=== PATIENT | female | born 1945 | race Asian ===

== ENCOUNTER 2019-07-01 11:47 | Observation (INO) | payer MEDICARE, OTHER ==
[~2019-07-01] VITALS: Ht 160 cm; Wt 56.7 kg
--- OUTSIDE RECORDS SUMMARY | 2019-07-01 11:50 | XMS REPORT ---
Author Author [facility] Organization [facility] Address [address] [place] [place] [address] Phone Unavailable Care Team Providers Care Microsoft Developer Name Role Phone TYRON KAMI BUI Attphys Unavailable LUIGI GUERIN Admphys Unavailable Problems This patient has no known problems. Allergies, Adverse Reactions, Alerts This patient has no known allergies or adverse reactions. Medications This patient has no known medications. Procedures This patient has no known procedures. Results Test Description Test Time Test Comments Results Result Comments Source POCT-GLUCOSE METER 2018-04-04 07:55:00 Test Item POC-GLUCOSE METER (BEAKER) (test code = 1538) 194 mg/dL 70-110 H TESTED AT [facility] [address] [facility] [address] BASIC METABOLIC [id number] 07:02:00* Test Item Value Reference Range Interpretation Comments SODIUM (BEAKER) (test code = 381) 136 meq/L 136-145 POTASSIUM (BEAKER) (test code = 379) 3.8 meq/L 3.5-5.1 CHLORIDE (BEAKER) (test code = 382) 108 meq/L 98-107 H CO2 (BEAKER) (test code = 355) 22 meq/L 22-29 BLOOD UREA NITROGEN (BEAKER) (test code = 354) 7 mg/dL 7-21 CREATININE (BEAKER) (test code = 358) 0.66 mg/dL 0.57-1.25 GLUCOSE RANDOM (BEAKER) (test code = 652) 168 mg/dL 70-105 H CALCIUM (BEAKER) (test code = 697) 8.3 mg/dL 8.4-10.2 L EGFR (BEAKER) (test code = 1092) 88 mL/min/1.73 sq m ESTIMATED GFR IS NOT ACCURATE CREATININE CLEARANCE IN PREDICTING GLOMERULAR FILTRATION RATE. ESTIMATED GFR IS NOT APPLICABLE FOR DIALYSIS PATIENTS. HEMOGLOBIN AND [id number] 05:41:00* Test Item Value Reference Range Interpretation Comments HEMOGLOBIN (BEAKER) (test code = 410) 10.2 GM/DL 11.2-15.7 L HEMATOCRIT (BEAKER) (test code = 411) 31.8 % 34.1-44.9 L POCT-GLUCOSE [id number] 21:06:00* Test Item Value Reference Range Interpretation Comments POC-GLUCOSE METER (BEAKER) (test code = 1538) 259 mg/dL 70-110 H TESTED AT [address] [address] HEMOGLOBIN AND [id number] 17:47:00* Test Item Value Reference Range Interpretation Comments HEMOGLOBIN (BEAKER) (test code = 410) 10.3 GM/DL 11.2-15.7 L HEMATOCRIT (BEAKER) (test code = 411) 31.6 % 34.1-44.9 L POCT-GLUCOSE [id number] 17:34:00* Test Item Value Reference Range Interpretation Comments POC-GLUCOSE METER (BEAKER) (test code = 1538) 143 mg/dL 70-110 H TESTED AT [address] [address] [id number] 11:32:00* Test Item Value Reference Range Interpretation Comments MAGNESIUM (BEAKER) (test code = 627) 1.6 mg/dL 1.6-2.6 POCT-GLUCOSE [id number] 11:14:00* Test Item Value Reference Range Interpretation Comments POC-GLUCOSE METER (BEAKER) (test code = 1538) 210 mg/dL 70-110 H TESTED AT [address] [address] POCT-GLUCOSE [id number] 07:33:00* Test Item Value Reference Range Interpretation Comments POC-GLUCOSE METER (BEAKER) (test code = 1538) 195 mg/dL 70-110 H TESTED AT [address] [address] BASIC METABOLIC [id number] 06:13:00* Test Item Value Reference Range Interpretation Comments SODIUM (BEAKER) (test code = 381) 135 meq/L 136-145 L POTASSIUM (BEAKER) (test code = 379) 3.4 meq/L 3.5-5.1 L CHLORIDE (BEAKER) (test code = 382) 105 meq/L 98-107 CO2 (BEAKER) (test code = 355) 23 meq/L 22-29 BLOOD UREA NITROGEN (BEAKER) (test code = 354) 10 mg/dL 7-21 CREATININE (BEAKER) (test code = 358) 0.70 mg/dL 0.57-1.25 GLUCOSE RANDOM (BEAKER) (test code = 652) 168 mg/dL 70-105 H CALCIUM (BEAKER) (test code = 697) 8.2 mg/dL 8.4-10.2 L EGFR (BEAKER) (test code = 1092) 82 mL/min/1.73 sq m ESTIMATED GFR IS NOT ACCURATE CREATININE CLEARANCE IN PREDICTING GLOMERULAR FILTRATION RATE. ESTIMATED GFR IS NOT APPLICABLE FOR DIALYSIS PATIENTS. HEPATIC FUNCTION [id number] 06:09:00* Test Item Value Reference Range Interpretation Comments TOTAL PROTEIN (BEAKER) (test code = 770) 5.7 gm/dL 6.0-8.3 L ALBUMIN (BEAKER) (test code = 1145) 3.2 g/dL 3.5-5.0 L BILIRUBIN TOTAL (BEAKER) (test code = 377) 0.5 mg/dL 0.2-1.2 BILIRUBIN DIRECT (BEAKER) (test code = 706) 0.2 mg/dL 0.1-0.5 ALKALINE PHOSPHATASE (BEAKER) (test code = 346) 30 U/L 40-150 L AST (SGOT) (BEAKER) (test code = 353) 15 U/L 5-34 ALT (SGPT) (BEAKER) (test code = 347) 14 U/L 6-55 HEMOGLOBIN AND [id number] 05:42:00* Test Item Value Reference Range Interpretation Comments HEMOGLOBIN (BEAKER) (test code = 410) 10.7 GM/DL 11.2-15.7 L HEMATOCRIT (BEAKER) (test code = 411) 33.4 % 34.1-44.9 L POCT-GLUCOSE [id number] 21:25:00* Test Item Value Reference Range Interpretation Comments POC-GLUCOSE METER (BEAKER) (test code = 1538) 192 mg/dL 70-110 H TESTED AT [facility] [address] [facility] [address] HEMOGLOBIN AND [id number] 18:43:00* Test Item Value Reference Range Interpretation Comments HEMOGLOBIN (BEAKER) (test code = 410) 12.0 GM/DL 11.2-15.7 HEMATOCRIT (BEAKER) (test code = 411) 36.5 % 34.1-44.9 POCT-GLUCOSE [id number] 12:53:00* Test Item Value Reference Range Interpretation Comments POC-GLUCOSE METER (BEAKER) (test code = 1538) 233 mg/dL 70-110 H TESTED AT [facility] [address] [facility] [address] CBC W/PLT COUNT & AUTO [id number] 06:20:00* Test Item Value Reference Range Interpretation Comments WHITE BLOOD CELL COUNT (BEAKER) (test code = 775) 7.0 K/ L 4.0- 10.0 RED BLOOD CELL COUNT (BEAKER) (test code = 761) 4.00 M/ L 4.00-5 .00 HEMOGLOBIN (BEAKER) (test code = 410) 12.7 GM/DL 12.0-15.0 HEMATOCRIT (BEAKER) (test code = 411) 37.9 % 36.0-45.0 MEAN CORPUSCULAR VOLUME (BEAKER) (test code = 753) 94.7 fL 82. 0-99.0 MEAN CORPUSCULAR HEMOGLOBIN (BEAKER) (test code = 751) 31.8 pg 27.0-33.0 MEAN CORPUSCULAR HEMOGLOBIN CONC (BEAKER) (test code = 752) 33.6 GM/DL 32.0-36.0 RED CELL DISTRIBUTION WIDTH (BEAKER) (test code = 412) 13.0 % 10.3-14.2 PLATELET COUNT (BEAKER) (test code = 756) 169 K/CU MM 150-430 MEAN PLATELET VOLUME (BEAKER) (test code = 754) 7.0 fL 6.5-10 .5 NEUTROPHILS RELATIVE PERCENT (BEAKER) (test code = 429) 76 % LYMPHOCYTES RELATIVE PERCENT (BEAKER) (test code = 430) 16 % MONOCYTES RELATIVE PERCENT (BEAKER) (test code = 431) 7 % EOSINOPHILS RELATIVE PERCENT (BEAKER) (test code = 432) 1 % BASOPHILS RELATIVE PERCENT (BEAKER) (test code = 437) 1 % NEUTROPHILS ABSOLUTE COUNT (BEAKER) (test code = 670) 5.31 K/ L 1.80-8.00 LYMPHOCYTES ABSOLUTE COUNT (BEAKER) (test code = 414) 1.10 K/ L 1.48-4.50 L MONOCYTES ABSOLUTE COUNT (BEAKER) (test code = 415) 0.48 K/ L 0. 00-1.30 EOSINOPHILS ABSOLUTE COUNT (BEAKER) (test code = 416) 0.07 K/ L 0.00-0.50 BASOPHILS ABSOLUTE COUNT (BEAKER) (test code = 417) 0.03 K/ L 0. 00-0.20 CBC W/PLT COUNT & AUTO [id number] 02:54:00* Test Item Value Reference Range Interpretation Comments WHITE BLOOD CELL COUNT (BEAKER) (test code = 775) 7.5 K/ L 4.0- 10.0 RED BLOOD CELL COUNT (BEAKER) (test code = 761) 4.00 M/ L 4.00-5 .00 HEMOGLOBIN (BEAKER) (test code = 410) 12.5 GM/DL 12.0-15.0 HEMATOCRIT (BEAKER) (test code = 411) 37.8 % 36.0-45.0 MEAN CORPUSCULAR VOLUME (BEAKER) (test code = 753) 94.4 fL 82. 0-99.0 MEAN CORPUSCULAR HEMOGLOBIN (BEAKER) (test code = 751) 31.4 pg 27.0-33.0 MEAN CORPUSCULAR HEMOGLOBIN CONC (BEAKER) (test code = 752) 33.2 GM/DL 32.0-36.0 RED CELL DISTRIBUTION WIDTH (BEAKER) (test code = 412) 12.9 % 10.3-14.2 PLATELET COUNT (BEAKER) (test code = 756) 167 K/CU MM 150-430 MEAN PLATELET VOLUME (BEAKER) (test code = 754) 7.4 fL 6.5-10 .5 NEUTROPHILS RELATIVE PERCENT (BEAKER) (test code = 429) 78 % LYMPHOCYTES RELATIVE PERCENT (BEAKER) (test code = 430) 14 % MONOCYTES RELATIVE PERCENT (BEAKER) (test code = 431) 8 % EOSINOPHILS RELATIVE PERCENT (BEAKER) (test code = 432) 1 % BASOPHILS RELATIVE PERCENT (BEAKER) (test code = 437) 0 % NEUTROPHILS ABSOLUTE COUNT (BEAKER) (test code = 670) 5.83 K/ L 1.80-8.00 LYMPHOCYTES ABSOLUTE COUNT (BEAKER) (test code = 414) 1.01 K/ L 1.48-4.50 L MONOCYTES ABSOLUTE COUNT (BEAKER) (test code = 415) 0.56 K/ L 0. 00-1.30 EOSINOPHILS ABSOLUTE COUNT (BEAKER) (test code = 416) 0.05 K/ L 0.00-0.50 BASOPHILS ABSOLUTE COUNT (BEAKER) (test code = 417) 0.03 K/ L 0. 00-0.20 PROTHROMBIN TIME/[id number] 01:24:00* Test Item Value Reference Range Interpretation Comments PROTIME (BEAKER) (test code = 759) 10.3 seconds 9.8-12.0 INR (BEAKER) (test code = 370) 1.0 <=5.9 RECOMMENDED COUMADIN/WARFARIN INR THERAPY RANGESSTANDARD DOSE: 2.0 - 3.0 Inclu candi: PROPHYLAXIS for venous thrombosis, systemic embolization; TREATMENT for kaylah ous thrombosis and/or pulmonary embolus.HIGH RISK: Target INR is 2.5-3.5 for pat ients with mechanical heart valves.CT, [id number] 23:35:00Reason for exam:->DIARRHEAWhat is the patient's sedation requirement?->No SedationFINAL REPORT CLINICAL HISTORY: Diarrhea, abdominal pain and hematochezia FINDINGS: Multiple axial images of the abdomen and pelvis were performed after the uncomplicated administration of IV contrast. Oral contrast w as not given. This exam was performed according to our departmental dose-optimi zation program, which includes automated exposure control, adjustment of the mA and/or kV according to patient size and/or use of the iterative reconstruction t echnique. Comparison:None. Lower chest: Clear lungs. No pleural effusion or pneu mothorax. Visualized cardiac contours normal. Liver: No significant findings. Ga llbladder and biliary tree: No significant findings. Spleen: No significant find ings. Adrenal Glands: No significant findings. Kidneys and ureters: No significa nt findings. Stomach and Duodenum: No significant findings. Pancreas: No signifi cant findings Bowel: Rectal wall thickening of the colon from the proximal trans verse portion to the rectum. There is mural edema in the colon from the splenic flexure to the rectum with adjacent fat stranding and prominent vasculature, as well as prominent mucosal enhancement. The colon is relatively decompressed but there is a small amount of fluid density stool within the lumen of the colon to the rectum. There is no bowel obstruction or pneumatosis intestinalis. The small bowel is unremarkable. Appendix: Normal. Bladder: Decompressed Major vascular structures: Scattered, minimal atherosclerotic calcifications Reproductive org ans: No significant findings. Other: No free air, fluid or adenopathy Skeleton: No acute bony abnormality. IMPRESSION: Colitis. Infectious and inflammatory caus es are considered. Signed: Moises Medrano MDReport Verified Date/Time: 9 23:35:11 Reading Location: [address] Reading Room [facility] signed by: MOISES MEDRANO M.D. on 04/01/2018 11:35 PM BASIC METABOLIC [id number] 21:29:00* Test Item Value Reference Range Interpretation Comments SODIUM (BEAKER) (test code = 381) 139 meq/L 135-148 POTASSIUM (BEAKER) (test code = 379) 4.7 meq/L 3.6-5.5 CHLORIDE (BEAKER) (test code = 382) 97 meq/L 98-106 L CO2 (BEAKER) (test code = 355) 27 meq/L 24-32 BLOOD UREA NITROGEN (BEAKER) (test code = 354) 27 mg/dL 10-26 H CREATININE (BEAKER) (test code = 358) 0.86 mg/dL 0.50-1.20 GLUCOSE RANDOM (BEAKER) (test code = 652) 240 mg/dL 70-110 H CALCIUM (BEAKER) (test code = 697) 10.5 mg/dL 8.5-10.5 EGFR (BEAKER) (test code = 1092) 65 mL/min/1.73 sq m ESTIMATED GFR IS NOT ACCURATE CREATININE CLEARANCE IN PREDICTING GLOMERULAR FILTRATION RATE. ESTIMATED GFR IS NOT APPLICABLE FOR DIALYSIS PATIENTS. URINALYSIS W/ REFLEX URINE [id number] 21:24:00* Test Item Value Reference Range Interpretation Comments COLOR (BEAKER) (test code = 470) Dark Yellow CLARITY (BEAKER) (test code = 469) Clear SPECIFIC GRAVITY UA (BEAKER) (test code = 468) 1.025 1.001-1 .035 PH UA (BEAKER) (test code = 467) 5.5 5.0-8.0 PROTEIN UA (BEAKER) (test code = 464) Trace Negative A GLUCOSE UA (BEAKER) (test code = 365) Negative Negative KETONES UA (BEAKER) (test code = 371) 40 mg/dL Negative A BILIRUBIN UA (BEAKER) (test code = 462) Negative Negative BLOOD UA (BEAKER) (test code = 461) Negative Negative NITRITE UA (BEAKER) (test code = 465) Negative Negative LEUKOCYTE ESTERASE UA (BEAKER) (test code = 466) Negative Negat santy UROBILINOGEN UA (BEAKER) (test code = 463) 0.2 mg/dL 0.2-1.0 BACTERIA (BEAKER) (test code = 517) Moderate MUCUS (BEAKER) (test code = 1574) Few RBC UA-MANUAL (BEAKER) (test code = 1659) <5 /HPF WBC UA-MANUAL (BEAKER) (test code = 1661) <5 /HPF SQUAMOUS EPITHELIAL MANUAL (BEAKER) (test code = 1663) <5 /HPF HYALINE CASTS MANUAL (BEAKER) (test code = 1665) 0-5 /LPF SOURCE(BEAKER) (test code = 0255) CBC W/PLT COUNT & AUTO [id number] 21:20:00* Test Item Value Reference Range Interpretation Comments WHITE BLOOD CELL COUNT (BEAKER) (test code = 775) 9.0 K/ L 4.0- 10.0 RED BLOOD CELL COUNT (BEAKER) (test code = 761) 4.68 M/ L 4.00-5 .00 HEMOGLOBIN (BEAKER) (test code = 410) 14.5 GM/DL 12.0-15.0 HEMATOCRIT (BEAKER) (test code = 411) 44.1 % 36.0-45.0 MEAN CORPUSCULAR VOLUME (BEAKER) (test code = 753) 94.3 fL 82. 0-99.0 MEAN CORPUSCULAR HEMOGLOBIN (BEAKER) (test code = 751) 31.1 pg 27.0-33.0 MEAN CORPUSCULAR HEMOGLOBIN CONC (BEAKER) (test code = 752) 33.0 GM/DL 32.0-36.0 RED CELL DISTRIBUTION WIDTH (BEAKER) (test code = 412) 12.7 % 10.3-14.2 PLATELET COUNT (BEAKER) (test code = 756) 190 K/CU MM 150-430 MEAN PLATELET VOLUME (BEAKER) (test code = 754) 7.3 fL 6.5-10 .5 NEUTROPHILS RELATIVE PERCENT (BEAKER) (test code = 429) 84 % LYMPHOCYTES RELATIVE PERCENT (BEAKER) (test code = 430) 10 % MONOCYTES RELATIVE PERCENT (BEAKER) (test code = 431) 4 % EOSINOPHILS RELATIVE PERCENT (BEAKER) (test code = 432) 1 % BASOPHILS RELATIVE PERCENT (BEAKER) (test code = 437) 0 % NEUTROPHILS ABSOLUTE COUNT (BEAKER) (test code = 670) 7.56 K/ L 1.80-8.00 LYMPHOCYTES ABSOLUTE COUNT (BEAKER) (test code = 414) 0.93 K/ L 1.48-4.50 L MONOCYTES ABSOLUTE COUNT (BEAKER) (test code = 415) 0.39 K/ L 0. 00-1.30 EOSINOPHILS ABSOLUTE COUNT (BEAKER) (test code = 416) 0.07 K/ L 0.00-0.50 BASOPHILS ABSOLUTE COUNT (BEAKER) (test code = 417) 0.04 K/ L 0. 00-0.20
--- OUTSIDE RECORDS SUMMARY | 2019-07-01 11:50 | XMS REPORT | Clinical Summary ---
Author Author [facility]OSUE [facility] Address Unknown Phone Unavailable Care Team Providers Care Print Shop Chief Clerk Name Role Phone Pcp, No PCP Unavailable Allergies Comments Active Allergy Reactions Severity Noted Date Never took but gave and hand blistered Chlorpromazine Hcl Rash Low 03/07/2015 Penicillins Rash Low 03/07/2015 Medications End Date Status Medication Sig Dispensed Refills Start Date Active calcipotriene (DOVONOX) Apply BID to 0 0.005 % ointment rash on 9 Sat/Sun prn Active desoximetasone (TOPICORT) Apply 0 02/18 0.25 % ointment sparingly BID 9 to rash Mon-Fri PRN flares only. Not for use on face, armpits or groin. Active glimepiride (AMARYL) 2 MG TAKE ONE 0 tablet TABLET BY 8 MOUTH EVERY MORNING BEFORE BREAKFAST Active latanoprost (XALATAN) INSTILL ONE 0 09/30/19 1 0.005 % ophthalmic DROP IN BOTH 8 solution EYES AT BEDTIME Active lisinopril-hydroCHLOROthi TAKE ONE 0 03/20 azide TABLET BY 9 (PRINZIDE,ZESTORETIC) MOUTH DAILY 20-12.5 mg per tablet Active metFORMIN (GLUCOPHAGE) TAKE ONE 0 1000 MG tablet TABLET BY 8 MOUTH TWICE A DAY WITH MEALS Active coenzyme Q10 100 mg Take 100 mg 0 capsule by mouth daily . Active pravastatin (PRAVACHOL) Take 40 mg by 0 40 MG tablet mouth nightly 8 . Active omega-3 acid ethyl esters Take 1,000 mg 0 (LOVAZA) 1 gram capsule by mouth 3 (three) times daily . Active multivitamin per tablet Take 1 tablet 0 by mouth daily. Active glucosamine/chondr marks A Take 1 tablet 0 sod (OSTEO BI-FLEX ORAL) by mouth daily. Active aspirin 81 MG chewable Take 81 mg by 0 tablet mouth daily. Active Problems Problem Noted Date Hypokalemia due to loss of potassium 04/03/2018 Acute blood loss anemia 04/03/2018 Colitis 04/02/2018 Acute hemorrhagic colitis 04/02/2018 Hypertension 04/02/2018 Diabetes mellitus 04/02/2018 Hyperlipidemia 04/02/2018 Family History Medical History Relation Name Comments Hypertension Paternal Grandfather Diabetes Paternal Grandmother Relation Name Status Comments Paternal Grandfather Paternal Grandmother Social History Date Tobacco Use Types Packs/Day Years Used Never Smoker Smokeless Tobacco: Never Used Alcohol Use Drinks/Week oz/Week Comments No Alcohol Habits Answer Date Recorded How often do you have a drink containing alcohol? Never 04/01/2018 How many drinks containing alcohol do you have on No t asked a typical day when you are drinking? How often do you have six or more drinks on one Not asked occasion? Sex Assigned at Date Recorded Not on file Industry Job Start Date Occupation Not on file Not on file Not on file Travel End Travel History Travel Start No recent travel history available. Last Filed Vital Signs Not on file Plan of Treatment Not on file Results Not on fileafter 06/30/2018 Insurance Payer Benefit Subscriber ID Type Phone Address Plan / Group [facility] xxxxxxxxxxx MEDICARE ADV Advance Directives For more information, please contact: [facility] [address] [place] [address] Date Inactivated Comments Code Status Date Activated Full Code 04/02/2018 1:25 PM This code status was determined by: Patient
[2019-07-01 12:25] LABS: BASOPHILS % 0.7 % (0.0-1.0); EOSINOPHILS # (AUTO) 0.2 (0.0-0.4); EOSINOPHILS % 2.8 % (0.0-6.0); HEMATOCRIT 34.1 % (34.2-44.1); HEMOGLOBIN 11.3 g/dL (12.0-16.0); LYMPHOCYTES # (AUTO) 1.8 (1.0-3.2); LYMPHOCYTES % 31.1 % (18.0-39.1); MEAN CORPUSCULAR HGB CONC 33.1 g/dL (31-35); MEAN CORPUSCULAR VOLUME 93.7 fL (81-99); MONOCYTES # (AUTO) 0.5 (0.2-0.8); NEUTROPHILS # (AUTO) 3.2 (2.1-6.9); NEUTROPHILS % 56.1 % (38.7-80.0); PLATELET COUNT 172 x10e3/uL (140-360); RED BLOOD COUNT 3.64 x10e6/uL (3.6-5.1)
--- NOTE | 2019-07-01 12:46 | Diagnostic Imaging Report ---
EXAMINATION: CHEST SINGLE (PORTABLE) INDICATION: Syncope COMPARISON: None FINDINGS: LINES/TUBES:None LUNGS:The lungs are well-inflated. No focal consolidation or pulmonary edema. PLEURA:No pleural effusion or pneumothorax. MEDIASTINUM:The cardiomediastinal silhouette appears normal in size and shape. Atherosclerotic calcifications of the thoracic aorta. BONES/SOFT TISSUES:No acute osseous injury. ABDOMEN:No free air under the diaphragm. IMPRESSION: No focal pneumonia or pulmonary edema. Signed by: Shawna Villar MD on 07/01/2019 12:42 PM
[2019-07-01 12:56] LABS: ALANINE AMINOTRANSFERASE 22 IU/L (0-55); ALBUMIN 3.6 g/dL (3.5-5.0); ALBUMIN/GLOBULIN RATIO 1.1 (0.8-2.0); ALKALINE PHOSPHATASE 43 IU/L (40-150); ANION GAP 16.1 mmol/L (8-16); BLOOD UREA NITROGEN 14 mg/dL (7-26); BUN/CREATININE RATIO 18 (6-25); CALCIUM 9.3 mg/dL (8.4-10.2); CARBON DIOXIDE 25 mmol/L (22-29); CHLORIDE 98 mmol/L (98-107); CREATINE KINASE 39 IU/L (29-168); CREATININE, SERUM 0.79 mg/dL (0.57-1.11); EST GLOMERULAR FILTRATION RATE > 60 ML/MIN (60-); GLUCOSE 141 mg/dL (74-118); POTASSIUM 4.1 mmol/L (3.5-5.1); SODIUM 135 mmol/L (136-145)
--- NOTE | 2019-07-01 13:11 | Diagnostic Imaging Report ---
Examination: CT head without contrast Clinical Indication: Syncope. Technique: Transaxial noncontrast images from the skull base through the vertex were obtained. Sagittal and coronal reformatted images were done. Dose modulation, iterative reconstruction, and/or weight based adjustment of the mA/kV was utilized to reduce the radiation dose to as low as reasonably achievable. Comparison: None. Findings: Scalp: No abnormalities. Bones: Intact. No fractures. No blastic or lytic lesions. Brain sulci: Moderate generalized volume loss. Ventricles: Ex vacuo dilatation. No hydrocephalus. Extra-axial space: No abnormalities. Parenchyma: There are patchy areas of low-attenuation within subcortical and periventricular white matter, nonspecific, but could represent microvascular ischemic disease. No masses, hemorrhage, or acute or chronic cortical based vascular insults. Suprasellar region: No abnormalities. Craniocervical junction: The foramen magnum is patent. No Chiari one malformation. Incidental findings: Atherosclerotic calcification of the cavernous and supraclinoid internal carotid and V4 segments of the bilateral vertebral arteries. Impression: 1. No acute intracranial finding. 2. Chronic microvascular ischemic change and generalized volume loss. Signed by: Dr. Ayaka Duran M.D. on 07/01/2019 1:07 PM
[2019-07-01 14:24] LABS: COLOR,URINE YELLOW (YELLOW)
[2019-07-01 14:25] LABS: BILIRUBIN,URINE NEGATIVE (NEGATIVE); CLARITY,URINE SL CLOUDY (CLEAR); KETONES,URINE NEGATIVE (NEGATIVE); LEUKOCYTE ESTERASE ,URINE NEGATIVE (NEGATIVE); NITRITE,URINE NEGATIVE (NEGATIVE); PROTEIN,URINE DIPSTICK NEGATIVE (NEGATIVE); URINE UROBILINOGEN 0.2 mg/dL (0.2 - 1)
[2019-07-01 14:38] LABS: BACTERIA,URINE FEW /HPF
--- OUTSIDE RECORDS SUMMARY | 2019-07-01 14:46 | XMS REPORT | Clinical Summary ---
Author Author JOSUE [facility] Address Unknown Phone Unavailable Care Team Providers Care Sourcing Intern Name Role Phone Pcp, No PCP Unavailable [...] ID Type Phone Address Plan / Group [facility] x[facility]xx MEDICARE ADV Advance Directives For more information, please contact: [facility] [address] [place] [address] Date Inactivated Comments Code Status Date Activated Full Code 04/02/2018 1:25 PM This code status was determined by: Patient
--- OUTSIDE RECORDS SUMMARY | 2019-07-01 14:46 | XMS REPORT ---
Author Author [facility] t Organization [facility] Address [address] [place] [address] Dr. Jones [address] [place] [phone] Phone Unavailable Care Team Providers Care Spring Encaser Name Role Phone Vickie ORDAZ Attphys Unavailable KAMI ACKERMAN Attphys Unavailable LUIGI GUERIN Admphys Unavailable Problems This patient has no known problems. Allergies, Adverse Reactions, Alerts This patient has no known allergies or adverse reactions. Medications This patient has no known medications. Procedures This patient has no known procedures. Results Test Description Test Time Test Comments Results Result Comments Source CT BRAIN WO 2019-07-01 13:06:[address] [address] Patient Name: MIGUEL GONZALEZ MR #: [id number] : 1946 Age/Sex: 72/F Req #: [id number] [facility] Physician: Ordered by: KUSH ORDAZ DO Report #: [id number] Location: ER Room/Bed: Procedure: [id number] CT/CT BRAIN WO Exam Date: 07/01/19 Exam Time: 1210 REPORT STATUS: Signed Examination: CT head without contrast Clinical Indication: Syncope. Technique: Transaxial noncontrast images from the skull base through the vertex were obtained. Sagittal and coronal reformatted images were done. Dose modulation, iterative reconstruction, and/or weight based adjustment of the mA/kV was utilized to reduce the radiation dose to as low as reasonably achievable. Comparison: None. Findings: Scalp: No abnormalities. Bones: Intact. No fractures. No blastic or lytic lesions. Brain sulci: Moderate generalized volume loss. Ventricles: Ex vacuo dilatation. No hydrocephalus. Extra-axial space: No abnormalities. Parenchyma: There are patchy areas of low-attenuation within subcortical and periventricular white matter, nonspecific, but could represent microvascular ischemic disease. No masses, hemorrhage, or acute or chronic cortical based vascular insults. Suprasellar region: No abnormalities. Craniocervical junction: The foramen magnum is patent. No Chiari one malformation. Incidental findings: Atherosclerotic calcification of the cavernous and supraclinoid internal carotid and V4 segments of the bilateral vertebral arteries. Impression: 1. No acute intracranial finding. 2. Chronic microvascular ischemic change and generalized volume loss. Signed by: Dr. Ayaka Duran M.D. on 07/01/2019 1:07 PM Dictated By: AYAKA CARTER MD 1306 Transcribed By: ADEN on 07/01/19 1308 COPY TO: KUSH ORDAZ DO CHEST SINGLE (PORTABLE) 2019-07-01 12:42:00 [place] [address] Patient Name: MIGUEL GONZALEZ MR #: [id number] : 1946 Age/Sex: 72/F Req #: [id number] Adm Physician: Ordered by: KUSH ORDAZ DO Report #: [id number] Location: Room/Bed: Procedure: [id number] DX/CHEST SINGLE (PORTABLE) Exam Date: 07/01/19 Exam Time: 1210 REPORT STATUS: Signed EXAMINATION: CHEST SINGLE (PORTABLE) INDICATION: Syncope COMPARISON: None FINDINGS: LINES/TUBES:None LUNGS:The lungs are well-inflated. No focal consolidation or pulmonary edema. PLEURA:No pleural effusion or pneumothora x. MEDIASTINUM:The cardiomediastinal silhouette appears normal in size and shape. Atherosclerotic calcifications of the thoracic aorta. BONES/SOFT TISSUES:No acute osseous injury. ABDOMEN:No free air under the diaphragm. IMPRESSION: No focal pneumonia or pulmonary edema. Signed by: Rocael Webster MD on 07/01/2019 12:42 PM Dictated By: ROCAEL WEBSTER MD 1242 Transcribed By: ADEN on 07/01/19 1242 COPY TO: KUSH ORDAZ DO POCT-GLUCOSE METER 2018-04-04 07:55:00 Test Item POC-GLUCOSE METER (BEAKER) (test code = 1538) 194 mg/dL 70-110 H TESTED AT [place] [address] BASIC METABOLIC [id number] 07:02:00* Test Item Value Reference Range Interpretation [...] NOT APPLICABLE FOR DIALYSIS PATIENTS. HEMOGLOBIN AND [id number] 05:41:00* Test Item Value Reference Range Interpretation Comments HEMOGLOBIN (BEAKER) (test code = 410) 10.2 GM/DL 11.2-15.7 L HEMATOCRIT (BEAKER) (test code = 411) 31.8 % 34.1-44.9 L POCT-GLUCOSE [id number] 21:06:00* Test Item Value Reference Range Interpretation Comments POC-GLUCOSE METER (BEAKER) (test code = 1538) 259 mg/dL 70-110 H TESTED AT [place] [address] HEMOGLOBIN AND [id number] 17:47:00* Test Item Value Reference Range Interpretation Comments HEMOGLOBIN (BEAKER) (test code = 410) 10.3 GM/DL 11.2-15.7 L HEMATOCRIT (BEAKER) (test code = 411) 31.6 % 34.1-44.9 L POCT-GLUCOSE [id number] 17:34:00* Test Item Value Reference Range Interpretation Comments POC-GLUCOSE METER (BEAKER) (test code = 1538) 143 mg/dL 70-110 H TESTED AT [place] [address] [id number] 11:32:00* Test Item Value Reference Range Interpretation Comments MAGNESIUM (BEAKER) (test code = 627) 1.6 mg/dL 1.6-2.6 POCT-GLUCOSE [id number] 11:14:00* Test Item Value Reference Range Interpretation Comments POC-GLUCOSE METER (BEAKER) (test code = 1538) 210 mg/dL 70-110 H TESTED AT [address] [address] POCT-GLUCOSE [id number] 07:33:00* Test Item Value Reference Range Interpretation Comments POC-GLUCOSE METER (BEAKER) (test code = 1538) 195 mg/dL 70-110 H TESTED AT [address] [address] BASIC METABOLIC [id number] 06:13:00* Test Item Value Reference Range Interpretation [...] NOT APPLICABLE FOR DIALYSIS PATIENTS. HEPATIC FUNCTION [id number] 06:09:00* Test Item Value Reference Range Interpretation [...] = 347) 14 U/L 6-55 HEMOGLOBIN AND [id number] 05:42:00* Test Item Value Reference Range Interpretation Comments HEMOGLOBIN (BEAKER) (test code = 410) 10.7 GM/DL 11.2-15.7 L HEMATOCRIT (BEAKER) (test code = 411) 33.4 % 34.1-44.9 L POCT-GLUCOSE [id number] 21:25:00* Test Item Value Reference Range Interpretation Comments POC-GLUCOSE METER (BEAKER) (test code = 1538) 192 mg/dL 70-110 H TESTED AT [facility] [address] [facility] [address] HEMOGLOBIN AND [id number] 18:43:00* Test Item Value Reference Range Interpretation Comments HEMOGLOBIN (BEAKER) (test code = 410) 12.0 GM/DL 11.2-15.7 HEMATOCRIT (BEAKER) (test code = 411) 36.5 % 34.1-44.9 POCT-GLUCOSE [id number] 12:53:00* Test Item Value Reference Range Interpretation Comments POC-GLUCOSE METER (BEAKER) (test code = 1538) 233 mg/dL 70-110 H TESTED AT [facility] [address] [facility] [address] CBC W/PLT COUNT & AUTO [id number] 06:20:00* Test Item Value Reference Range Interpretation [...] 0. 00-0.20 CBC W/PLT COUNT & AUTO [id number] 02:54:00* Test Item Value Reference Range Interpretation [...] 417) 0.03 K/ L 0. 00-0.20 PROTHROMBIN [id number] 01:24:00* Test Item Value Reference Range Interpretation Comments PROTIME (BEAKER) (test code = 759) 10.3 seconds 9.8-12.0 INR (BEAKER) (test code = 370) 1.0 <=5.9 RECOMMENDED COUMADIN/WARFARIN INR THERAPY RANGESSTANDARD DOSE: 2.0 - 3.0 Inclu candi: PROPHYLAXIS for venous thrombosis, systemic embolization; TREATMENT for kaylah ous thrombosis and/or pulmonary embolus.HIGH RISK: Target INR is 2.5-3.5 for pat ients with mechanical heart valves.CT, [id number] 23:35:00Reason for exam:->DIARRHEAWhat is the patient's sedation [...] MDReport Verified Date/Time: 9 23:35:11 Reading Location: [address] Reading Room [facility] signed by: MOISES MEDRANO M.D. on 04/01/2018 11:35 PM BASIC METABOLIC [id number] 21:29:00* Test Item Value Reference Range Interpretation [...] FOR DIALYSIS PATIENTS. URINALYSIS W/ REFLEX URINE [id number] 21:24:00* Test Item Value Reference Range Interpretation [...] 1665) 0-5 /LPF SOURCE(BEAKER) (test code = 3345) CBC W/PLT COUNT & AUTO [id number] 21:20:00* Test Item Value Reference Range Interpretation [...]
[2019-07-01] MEDS ORDERED: ONDANSETRON HCL INJ 2MG/ML 2ML 2 MG/ML VIAL IV PRN (16:00)
[2019-07-01] MEDS ORDERED: ACETAMINOPHEN 325 MG TAB PO PRN (16:00)
--- NOTE | 2019-07-01 16:07 | Emergency Department Note ---
History of Present Illnes History of Present Illness Chief Complaint: General Medicine Complaints History of Present Illness This is a 72 year old female arrived to the ED after passing out while on the toilet. Pt reports feeling fine now, denies any chest pain. Chief Complaint Comment Patient in from home via EMS with reports that she "passed out" on the toilet. Patient states that she was doing a zoom meeting with her bible study group and felt like she had to have a bowel movement. Patient states that she stood up and walked to the restroom and had a "loose" bowel movement. Patient states that she does not remember passing out but states that her told her that she did. EMS reported that the patient was hypotensive on arrival with BP in the 70s systolic but with fluids and over time her blood pressure came back up to her "normal" levels. Patient is alert and oriented during triage and answering all questions appropriately. No acute distress noted. 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 Any updates have been documented here. Past Medical History Recent Fever: No Clinical Suspicion of Infectio: No New/Unexplained Change in Ment: No Past Medical History: Hypertension, Diabetes, Hyperlipedemia Other Surgery: Hemorrhoid surgery Social History Smoking Cessation: Never Smoker Counseling Performed: No Alcohol Use: None Any Illegal Drug Use: No TB Exposure/Symptoms: No Physically hurt or threatened: No Family History Family history of heart diseas: No Other Last Tetanus: unknown Any Pre-Existing Lines (PICC,: No Is patient up to date on immun: Yes Last Flu: utd Last Pneumovax: utd Review of Systems Review of Systems Constitutional: no symptoms EENTM: no symptoms Cardiovascular: no symptoms Respiratory: no symptoms Gastrointestinal: no symptoms Genitourinary: no symptoms Musculoskeletal: no symptoms Integumentary: no symptoms Neurological: other (syncope with ?LOC ) Psychological: no symptoms Endocrine: no symptoms Hematological/Lymphatic: no symptoms Review of other systems All other systems reviewed and negative. Physical Exam Related Data Allergies: Coded Allergies: chlorpromazine (Verified Allergy, Severe, Contact dermatitis, 07/01/19) levofloxacin (Verified Allergy, Intermediate, numbness to left arm, 07/01/19) penicillin G (Verified Allergy, Unknown, 07/01/19) Triage Vital Signs Vital Signs Date Time Temp Pulse Resp B/P (MAP) Pulse Ox O2 Delivery O2 Flow Rate FiO2 07/01/19 11:53 98.2 88 16 134/56 96 Physical Exam CONSTITUTIONAL Constitutional: well-developed, well-nourished HENT HENT: normocephalic, atraumatic, oropharynx clear/moist, nose normal HENT - Ear: left ext ear normal, right ext ear normal EYES Eyes: PERRL, conjunctivae normal NECK Neck: ROM normal PULMONARY Pulmonary: effort normal, breath sounds normal CARDIOVASCULAR Cardiovascular: regular rhythm, heart sounds normal, capillary refill normal, normal rate GASTROINTESTINAL Abdominal: soft, nontender, bowel sounds normal GENITOURINARY Genitourinary: exam deferred SKIN Skin: warm, dry MUSCULOSKELETAL Musculoskeletal: ROM normal NEUROLOGICAL Neurological: alert, oriented x 3, no gross motor or sensory deficits PSYCHOLOGICAL Psychiatric/behavioral: mood/affect normal, judgement normal Results Laboratory Result Diagram: 07/01/19 1200 07/01/19 1200 Laboratory Laboratory Tests Test 07/01/19 13:45 07/01/19 12:00 Urine Color Yellow (YELLOW) Urine Clarity Sl cloudy (CLEAR) Urine pH 7 (5 - 7) Urine Specific [place] 1.025 (1.010-1.025) Urine Protein Negative (NEGATIVE) Urine Glucose (UA) Negative (NEGATIVE) Urine Ketones Negative (NEGATIVE) Urine Blood Negative (NEGATIVE) Urine Nitrite Negative (NEGATIVE) Urine Bilirubin Negative (NEGATIVE) Urine Urobilinogen 0.2 mg/dL (0.2 - 1) Urine Leukocyte Esterase Negative (NEGATIVE) Urine RBC None /HPF (0-5) Urine WBC None /HPF (0-5) Urine Epithelial Cells None /LPF (NONE) Urine Bacteria Few /HPF (NONE) Urine Hyaline Casts 2-5 (0-1) White Blood Count 5.76 x10e3/uL (4.8-10.8) Red Blood Count 3.64 x10e6/uL (3.6-5.1) Hemoglobin 11.3 g/dL (12.0-16.0) Hematocrit 34.1 % (34.2-44.1) Mean Corpuscular Volume 93.7 fL (81-99) Mean Corpuscular Hemoglobin 31.0 pg (28-32) Mean Corpuscular Hemoglobin Concent 33.1 g/dL (31-35) Red Cell Distribution Width 13.0 % (11.7-14.4) Platelet Count 172 x10e3/uL (140-360) Neutrophils (%) (Auto) 56.1 % (38.7-80.0) Lymphocytes (%) (Auto) 31.1 % (18.0-39.1) Monocytes (%) (Auto) 9.0 % (4.4-11.3) Eosinophils (%) (Auto) 2.8 % (0.0-6.0) Basophils (%) (Auto) 0.7 % (0.0-1.0) Neutrophils # (Auto) 3.2 (2.1-6.9) Lymphocytes # (Auto) 1.8 (1.0-3.2) Monocytes # (Auto) 0.5 (0.2-0.8) Eosinophils # (Auto) 0.2 (0.0-0.4) Basophils # (Auto) 0.0 (0.0-0.1) Absolute Immature Granulocyte (auto 0.02 x10e3/uL (0-0.1) Sodium Level 135 mmol/L (136-145) Potassium Level 4.1 mmol/L (3.5-5.1) Chloride Level 98 mmol/L (98-107) Carbon Dioxide Level 25 mmol/L (22-29) Anion Gap 16.1 mmol/L (8-16) Blood Urea Nitrogen 14 mg/dL (7-26) Creatinine 0.79 mg/dL (0.57-1.11) Estimat Glomerular Filtration Rate > 60 ML/MIN (60-) BUN/Creatinine Ratio 18 (6-25) Glucose Level 141 mg/dL (74-118) Calcium Level 9.3 mg/dL (8.4-10.2) Total Bilirubin 0.4 mg/dL (0.2-1.2) Aspartate Amino Transf (AST/SGOT) 25 IU/L (5-34) Alanine Aminotransferase (ALT/SGPT) 22 IU/L (0-55) Alkaline Phosphatase 43 IU/L (40-150) Creatine Kinase 39 IU/L (29-168) Creatine Kinase MB 1.60 ng/mL (0-5.0) Troponin I 0.013 ng/mL (0-0.300) Total Protein 7.0 g/dL (6.5-8.1) Albumin 3.6 g/dL (3.5-5.0) Globulin 3.4 g/dL (2.3-3.5) Albumin/Globulin Ratio 1.1 (0.8-2.0) Lab results reviewed: Yes Imaging Imaging results reviewed: Yes Imaging Comments Parenchyma: There are patchy areas of low-attenuation within subcortical and periventricular white matter, nonspecific, but could represent microvascular ischemic disease. No masses, hemorrhage, or acute or chronic cortical based vascular insults. Suprasellar region: No abnormalities. Craniocervical junction: The foramen magnum is patent. No Chiari one malformation. Incidental findings: Atherosclerotic calcification of the cavernous and supraclinoid internal carotid and V4 segments of the bilateral vertebral arteries. Impression: 1. No acute intracranial finding. 2. Chronic microvascular ischemic change and generalized volume loss. IMPRESSION: No focal pneumonia or pulmonary edema. Critical Care Time Subsequent provider I assumed direction of critical care for this patient from another provider of my specialty. Assessment & Plan Assessment & Plan Problems: (1) Syncope Assessment & Plan -CBC, CMP, Cardiac markers -CT Brain -cardiac monitoring -admission for syncope Depart Disposition: ADMITTED Last Vital Signs Date Time Temp Pulse Resp B/P (MAP) Pulse Ox O2 Delivery O2 Flow Rate FiO2 07/01/19 15:46 95 20 98 07/01/19 12:00 153/98 07/01/19 11:53 98.2 KUSH ORDAZ DO July 01, 2019 16:07
--- NOTE | 2019-07-01 16:50 | History and Physical ---
PRIMARY CARE DOCTOR: Dr. Rut Hoffman. CHIEF COMPLAINT: Syncope. HISTORY OF PRESENT ILLNESS: This is a 72-year-old woman, today well. She is having a bowel movement on the toilet, without prodrome the patient had a syncopal episode. Per the , was in the bathroom with her, just checking on her, from his perspective the patient became less conscious, started leaning toward the wall, and then subsequently completely passed out; the was able to brace her fall. Per the , this lasted about 10 minutes. The patient stated that this was unexpected. She did not have any dizziness. No chest pain. No shortness of breath. No nausea. No vomiting. Last time she passed out was about a year or two ago; at that time, it was thought to be due to heat exhaustion because they were out fishing. At that time, a Holter monitor was done by her primary care doctor. Currently, the patient is back to baseline; in fact, she wanted to go home. PAST MEDICAL AND SURGICAL HISTORY: 1. Diabetes with a recent hemoglobin A1c is 6.9. 2. Hypertension. 3. Hyperlipidemia. 4. Specifically hypertriglyceridemia. 5. Tubal ligation. MEDICATIONS: Please see medication reconciliation form. ALLERGIES: PLEASE SEE THE LIST. FAMILY HISTORY: Significant for diabetes. SOCIAL HISTORY: Does not smoke. 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 REVIEW OF SYSTEMS: A 10-point review of system obtained and nothing else is significant other than what is stated in the HPI. PHYSICAL EXAMINATION: VITAL SIGNS: Temperature 98.2, pulse 97, respiratory rate 20, blood pressure 153/98. GENERAL: No acute distress. SKIN: No rash. HEENT: Anicteric. NECK: Supple. Oropharynx is clear. LUNGS: Clear. HEART: Regular rate and rhythm. Normal S1, S2. GI: Abdomen is soft, nondistended, nontender. Normoactive bowel sounds. MUSCULOSKELETAL: Painless range of motion in joints. NEUROLOGIC: Alert and oriented x3. Cranial nerves II through XII intact. PSYCHIATRIC: No hallucination. LABORATORY DATA: Sodium 135, creatinine 0.5. Troponin is negative. Chest x-ray is negative. EKG nonspecific, normal sinus rhythm. Head CT, no acute disease. ASSESSMENT AND PLAN: 1. Syncope without prodrome, also after a bowel movement. We will continue to watch her overnight on telemetry. We will check her echocardiogram and carotid ultrasound. We will consult Cardiology for further evaluation, possibly she may need something like loop recorder. 2. Hypertension. At this time, I do not know what she takes at home. We will put her on low-dose metoprolol and losartan. 3. Controlled diabetes, appears stable. 4. Dyslipidemia. We will check her lipid panel in the morning. 5. Gastrointestinal and deep venous thrombosis prophylaxis, low risk, not indicated. I have updated her at the bedside. Also, I have updated her primary care doctor as well. Yiching MD RONY Abdullahi/KENZIE /[id number] cc: [facility]
[2019-07-01] MEDS: LOSARTAN POTASSIUM 25 MG TAB PO SCH (16:57)
[2019-07-01] MEDS: METOPROLOL TARTRATE 25 MG TAB PO SCH (16:57)
--- NOTE | 2019-07-01 17:45 | Consultation ---
DATE OF CONSULTATION: Cardiac Consultation REASON FOR CONSULTATION: Syncope. HISTORY OF PRESENT ILLNESS: A 72-year-old lady diabetic, hypertensive, hypercholesterolemic, the patient in her usual status of health. She was in the bathroom after she finished BM. Her came to check on her at that time she passed out. He hold her and as per patient, she past out for almost 10 minutes. After that she wake up, she does not remember what happened. There is no seizure activity noted. The patient had similar episode while she was fishing two years ago, but at that time, it was hot weather and possible she had that because of dehydration. Regardless, the patient activities are reasonable at her level of activity. She is doing fine, but if she tried to go up stairs or to walk fast, she will have shortness of breath on exertion class 3 [place] [employer] classification with some chest tightness. There is no orthopnea. There is no paroxysmal nocturnal dyspnea. Occasional palpitation, but no prolonged and is usually not associated with symptoms. REVIEW OF SYSTEMS: GENERAL: No fever, no chills. HEENT: Decreased hearing. PULMONARY: No cough. No hemoptysis. CARDIAC: As per history and physical. GI: No constipation, no diarrhea, no nausea, no vomiting. : No incontinence, no hematuria, no dysuria. MUSCULOSKELETAL: Some knee pain, some back pain, but not out of usual. Occasional tingling in her feet. NEUROLOGICAL: No seizure activity. No headache. ENDOCRINE: Diabetic. There are no symptoms to suggest hypoglycemia. HEMATOLOGY: Easy bruising, but no bleeding. SOCIAL HISTORY: She is . She is nonsmoker and non-alcohol drinker. 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 MEDICATIONS: Metformin 500 mg twice a day, Amaryl 2 mg a day, lisinopril hydrochlorothiazide 20/12.5 one tablet a day, pravastatin 40 mg a day. ALLERGIES: LEVAQUIN, PENICILLIN AND THORAZINE. PAST MEDICAL HISTORY: 1. Diabetes mellitus. 2. Hypertension. 3. Hypercholesteremia. 4. Decreased hearing. 5. Hemorrhoidectomy. 6. Tubal ligation. FAMILY HISTORY: Father at age 88. He was diabetic. Mother of old age at age 95. One healthy brother; six sisters, several of them are diabetic, one son and three daughters. They are all healthy. PHYSICAL EXAMINATION: GENERAL: Height of 5 feet 3 inches, weight of 125 pounds. The patient appears to be in no distress. VITAL SIGNS: Blood pressure 138/67, heart rate of 60, respiratory rate of 18, afebrile. HEENT: Decreased hearing. The patient is having hearing aid and pupils are reactive and equal. NECK: No elevation of jugular venous pulsation. No bruit. No thyromegaly. No lymphadenopathy. CHEST: Clear to auscultation and percussion. HEART: PMI 5th left intercostal space. Normal first and second heart sounds. ABDOMEN: Soft with good bowel sounds. No organomegaly. No abdominal bruits. EXTREMITIES: No cyanosis, no clubbing, no edema. No signs of deep venous thrombosis. NEUROLOGIC: Awake, alert, and oriented. Neck is supple. No motor deficits. SKIN: No skin rashes. No skin lesion. LABORATORY DATA: BUN of 14, creatinine of 0.8. Sodium of 135, potassium 4.1, chloride of 98, bicarb of 25. White blood cell count of 5.8, hemoglobin of 11.3, hematocrit 34%, platelet count of 172,000. Chest x-ray, no major abnormality. CT head, no acute changes. IMPRESSION AND PLAN: 1. Diabetic. 2. Hypertension. 3. Hypercholesteremia. 4. Syncope seems to be vasovagal. 5. Shortness of breath on exertion. Possible angina equivalent, but relatively stable. 6. Decreased hearing. Cardiac-bajwa, my recommendation is observation on telemetry. We will review the test ordered on her including echo and carotid. If her cardiac enzymes are normal, and her telemetry is very benign and the test are reasonable, the patient can be dismissed home. Maybe after 24 hours of observation, advised she should have time for her to have a cardiac stress test. Questions are answered. Relatively long visit with patient having quite lot of questioning. MD KEISHA Santana/KENZIE /[id number]
--- NOTE | 2019-07-01 20:44 | NUR ---
Patient resting with no distress noted. RR even and unlabored.
--- NOTE | 2019-07-01 22:17 | NUR ---
Patient placed on a waffle mattress for comfort. Patient in no distress at this time. Call light remains at bedside and instructed pateint to call if she needed assistance. Patient verbalized understanding.
[2019-07-02] MEDS ORDERED: LISINOPRIL-HCT1 EAC1 PO (03:11)
[2019-07-02] MEDS ORDERED: GLUCOPHAGE500 MG PO (03:11)
--- NOTE | 2019-07-02 03:22 | NUR ---
Patient O2 sats dropped to 91% while sleeping. Patient placed on one liter nasal cannula. No distress noted. Will continue to monitor patient.
--- NOTE | 2019-07-02 04:46 | NUR ---
Patient moved to room 3 at this time. No distress noted. Call light at bedside. Instructed patient to call if she needed assistance. Patient verbalized understanding.
[2019-07-02 04:50] LABS: CHOL/HDL RATIO 3.6 (3.0-3.6)
--- NOTE | 2019-07-02 06:57 | NUR ---
Report to ISA Oconnor
--- NOTE | 2019-07-02 07:38 | NUR ---
client up to RR
[2019-07-02] MEDS: LOSARTAN POTASSIUM 25 MG TAB PO SCH (08:34)
[2019-07-02] MEDS: METOPROLOL TARTRATE 25 MG TAB PO SCH (08:34)
--- NOTE | 2019-07-03 02:21 | Discharge Summary ---
PRIMARY CARE DOCTOR: Dr. Rut Hoffman. FINAL DIAGNOSIS: Syncope. SECONDARY DIAGNOSES: 1. Diabetes. 2. Hypertension. 3. Dyslipidemia. CONSULTANTS: Dr. Kessler, Cardiology. PROCEDURES/STUDIES PERFORMED: 1. Head CT, which was benign. 2. Echocardiogram, which was benign. 3. Carotid ultrasound. HISTORY: Per H and P. HOSPITAL COURSE: Overnight telemetry was unremarkable. Triglyceride level was 169. Repeat troponin is negative. Therefore, there was no acute myocardial infarction. The patient was evaluated by Cardiology, who felt that this is probably vasovagal; however, he did recommend outpatient stress test. Given the fact her syncope even though while it happened on the toilet, there was no prodrome, so potentially we may want to consider a loop recorder. I have updated her primary care doctor about this hospitalization. I have also updated the at the bedside. The patient was seen and examined today. CONDITION ON DISCHARGE: Improved. DISCHARGE MEDICATIONS: Please see medication reconciliation form. MD RONY Villegas/KENZIE /[id number]
== END 2019-07-02 13:00 | disposition home or self-care, planned readmission (81) ==
LOC: ER 11:47 → ERHOLD 14:33 → EDBD 14:33
PROVIDERS: ADMIT Internal Medicine; ATTEND Internal Medicine
DX: R55 Syncope and collapse (principal); E11.9 Type 2 diabetes mellitus without complications; I10 Essential (primary) hypertension; E78.5 Hyperlipidemia, unspecified; E78.1 Pure hyperglyceridemia; Z83.3 Family history of diabetes mellitus; Z88.1 Allergy status to other antibiotic agents; Z88.0 Allergy status to penicillin; Z88.8 Allergy status to other drugs, medicaments and biological substances; Z79.84 Long term (current) use of oral hypoglycemic drugs
CPT/HCPCS: 36415 ×2; 70450; 71045; 80053; 80061; 81001; 82550; 82553; 82948; 84484 ×2; 85025; 87635; 93005; 93306; 93880; 99284; G0378 ×2

== ENCOUNTER 2023-01-07 16:58 | Inpatient (IN) | payer MEDICARE ==
[~2023-01-07] VITALS: Ht 157.5 cm; Wt 56.7 kg
[~2023-01-07 16:58] MED LIST: GLUCOPHAGE500 MG PO; LISINOPRIL-HCT1 EAC1 PO
[2023-01-07] MEDS ORDERED: SODIUM CHLORIDE 0.9% 1000ML 1,000 ML IV STA (17:03)
[2023-01-07] MEDS ORDERED: ACETAMINOPHEN 325 MG TAB PO STA (17:03)
[2023-01-07 17:32] LABS: BASOPHILS % 0.2 % (0.0-1.0); EOSINOPHILS % 0.3 % (0.0-6.0); HEMATOCRIT 31.5 % (34.2-44.1); HEMOGLOBIN 10.4 g/dL (12.0-16.0); LYMPHOCYTES # (AUTO) 0.7 (1.0-3.2); LYMPHOCYTES % 7.5 % (18.0-39.1); MEAN CORPUSCULAR HEMOGLOBIN 30.9 pg (28-32); MEAN CORPUSCULAR VOLUME 93.5 fL (81-99); MONOCYTES # (AUTO) 0.4 (0.2-0.8); MONOCYTES % 4.7 % (4.4-11.3); NEUTROPHILS # (AUTO) 7.9 (2.1-6.9); NEUTROPHILS % 86.8 % (38.7-80.0); PLATELET COUNT 181 x10e3/uL (140-360); RED BLOOD COUNT 3.37 x10e6/uL (3.6-5.1); RED CELL DISTRIBUTION WIDTH 13.8 % (11.7-14.4); WHITE BLOOD COUNT 9.12 x10e3/uL (4.8-10.8)
[2023-01-07 17:52] LABS: ALBUMIN 3.3 g/dL (3.5-5.0); ALBUMIN/GLOBULIN RATIO 0.8 (0.8-2.0); ANION GAP 18.8 mmol/L (8-16); BILIRUBIN,TOTAL 0.7 mg/dL (0.2-1.2); CALCIUM 9.6 mg/dL (8.4-10.2); CREATININE, SERUM 0.97 mg/dL (0.57-1.11); POTASSIUM 3.8 mmol/L (3.5-5.1); TOTAL PROTEIN 7.3 g/dL (6.5-8.1)
[2023-01-07 17:58] LABS: TROPONIN I 0.017 ng/mL (0-0.300)
[2023-01-07 18:06] LABS: B-TYPE NATRIURETIC PEPTIDE2 47.9 pg/mL (0-100)
[2023-01-07 19:39] LABS: BILIRUBIN,URINE NEGATIVE (NEGATIVE); CLARITY,URINE SL CLOUDY (CLEAR); COLOR,URINE YELLOW (YELLOW); GLUCOSE, URINE 1+ (NEGATIVE); KETONES,URINE 1+ (NEGATIVE); LEUKOCYTE ESTERASE ,URINE TRACE (NEGATIVE); NITRITE,URINE POSITIVE (NEGATIVE); PH,URINE 7 (5 - 7); PROTEIN,URINE DIPSTICK >=300 (NEGATIVE); URINE UROBILINOGEN 0.2 mg/dL (0.2 - 1)
[2023-01-07 19:49] LABS: BACTERIA,URINE MODERATE /HPF; RENAL EPITHELIAL CELLS,URINE FEW; WBC,URINE (MAN) 21-50 /HPF (0-5)
[2023-01-07] MEDS ORDERED: ONDANSETRON HCL INJ 2MG/ML 2ML 2 MG/ML VIAL IV PRN (20:15)
[2023-01-07] MEDS ORDERED: CLONIDINE HCL 0.1 MG TAB PO PRN (20:15)
[2023-01-07] MEDS ORDERED: DEXTROSE 50% SYRINGE 50 ML IV PRN (20:15)
[2023-01-07] MEDS ORDERED: ACETAMINOPHEN 325 MG TAB PO PRN (20:15)
[2023-01-07 20:30] VITALS: BP 129/66; PULSE 81; RESP 18; TEMP 98.8; O2SAT 98
[2023-01-07 20:38] VITALS: PULSE 90; RESP 18; O2SAT 95
[2023-01-07 21:00] VITALS: BP 129/66; PULSE 90; RESP 18; TEMP 98.8; O2SAT 95
[2023-01-07] MEDS: SODIUM CHLORIDE 0.9% 1000ML 1,000 ML IV SCH (22:19)
[2023-01-07] MEDS: INSULIN REGULAR, HUMAN 100 UNIT/1 ML SQ SCH (22:30)
[2023-01-08] VITALS (10 sets, daily range): BP systolic 111–135; BP diastolic 57–72; PULSE 67–86; RESP 16–20; TEMP 98–100; O2SAT 92–100
[2023-01-08] MEDS ORDERED: PRAVASTATIN SOD40 MG PO (01:24)
[2023-01-08] MEDS ORDERED: TIMOLOL(T) (01:24)
[2023-01-08] MEDS ORDERED: METFORMIN HCL1000 MG PO (01:24)
[2023-01-08] MEDS ORDERED: LATANOPROST2.5 ML (01:24)
[2023-01-08] MEDS ORDERED: LOSARTAN POTAS100 MG PO (01:24)
[2023-01-08] MEDS ORDERED: GLIMEPIRIDE2 MG PO (01:24)
[2023-01-08] MEDS ORDERED: AMLODIPINE BESYL5 MG PO (01:24)
[2023-01-08] MEDS: SODIUM CHLORIDE 0.9% 1000ML 1,000 ML IV SCH (04:15)
[2023-01-08 05:58] LABS: BASOPHILS % 0.2 % (0.0-1.0); EOSINOPHILS # (AUTO) 0.1 (0.0-0.4); EOSINOPHILS % 0.5 % (0.0-6.0); HEMATOCRIT 29.3 % (34.2-44.1); HEMOGLOBIN 9.5 g/dL (12.0-16.0); LYMPHOCYTES # (AUTO) 1.8 (1.0-3.2); LYMPHOCYTES % 17.6 % (18.0-39.1); MEAN CORPUSCULAR HEMOGLOBIN 30.9 pg (28-32); MEAN CORPUSCULAR HGB CONC 32.4 g/dL (31-35); MEAN CORPUSCULAR VOLUME 95.4 fL (81-99); MONOCYTES % 9.6 % (4.4-11.3); NEUTROPHILS # (AUTO) 7.3 (2.1-6.9); NEUTROPHILS % 71.8 % (38.7-80.0); PLATELET COUNT 141 x10e3/uL (140-360); RED BLOOD COUNT 3.07 x10e6/uL (3.6-5.1); RED CELL DISTRIBUTION WIDTH 13.7 % (11.7-14.4)
[2023-01-08 06:20] LABS: ALBUMIN 2.9 g/dL (3.5-5.0); ALBUMIN/GLOBULIN RATIO 0.8 (0.8-2.0); ANION GAP 11.6 mmol/L (8-16); BILIRUBIN,TOTAL 0.5 mg/dL (0.2-1.2); CALCIUM 8.6 mg/dL (8.4-10.2); CREATININE, SERUM 0.8 mg/dL (0.57-1.11); POTASSIUM 3.6 mmol/L (3.5-5.1); TOTAL PROTEIN 6.5 g/dL (6.5-8.1)
[2023-01-08 06:56] LABS: TROPONIN I 0.117 ng/mL (0-0.300)
[2023-01-08] MEDS: INSULIN REGULAR, HUMAN 100 UNIT/1 ML SQ SCH ×4 (07:30→21:23)
[2023-01-08] MEDS ORDERED: HYDROCHLOROTHIAZIDE 25 MG TAB PO SCH (09:00)
[2023-01-08] MEDS ORDERED: LISINOPRIL 20 MG TAB PO SCH (09:00)
[2023-01-08 14:55] LABS: TROPONIN I 0.252 ng/mL (0-0.300)
[2023-01-08] MEDS ORDERED: IOPAMIDOL 370 MG/ML 100 ML INFUS..BTL INJ ONE (18:33)
[2023-01-08] MEDS: ENOXAPARIN SOD INJ 40 MG/0.4 ML SYR SC SCH (18:36)
[2023-01-08] MEDS: SIMVASTATIN 20 MG TAB PO SCH (21:16)
[2023-01-08] MEDS: LATANOPROST(OPTH) 2.5 ML BTL OP SCH (21:16)
[2023-01-09] VITALS (10 sets, daily range): BP systolic 114–138; BP diastolic 55–73; PULSE 67–88; RESP 16–20; TEMP 98.1–100.4; O2SAT 93–100
[2023-01-09 07:13] LABS: TROPONIN I 0.249 ng/mL (0-0.300)
[2023-01-09] MEDS: CEFTRIAXONE 2 GM in SODIUM CHLORIDE 0.9% 100 ML IV SCH (09:45)
[2023-01-09] MEDS: INSULIN REGULAR, HUMAN 100 UNIT/1 ML SQ SCH ×4 (09:47→21:28)
[2023-01-09] MEDS: TIMOLOL MALEATE 0.25% OPTHLAMIC DROPS 5 ML OP SCH (09:47)
[2023-01-09] MEDS: GLIMEPIRIDE 2 MG TAB PO SCH (12:55)
[2023-01-09] MEDS: ENOXAPARIN SOD INJ 40 MG/0.4 ML SYR SC SCH (17:31)
[2023-01-09] MEDS: SIMVASTATIN 20 MG TAB PO SCH (21:21)
[2023-01-09] MEDS: LATANOPROST(OPTH) 2.5 ML BTL OP SCH (21:22)
[2023-01-10] VITALS: BP 132/81; PULSE 77; RESP 18; TEMP 99.6; O2SAT 98
[2023-01-10 04:00] VITALS: BP 150/70; PULSE 62; RESP 18; TEMP 97.8; O2SAT 96
[2023-01-10 05:44] LABS: BASOPHILS % 0.2 % (0.0-1.0); EOSINOPHILS % 0.3 % (0.0-6.0); HEMATOCRIT 30.2 % (34.2-44.1); LYMPHOCYTES # (AUTO) 1.4 (1.0-3.2); LYMPHOCYTES % 16.2 % (18.0-39.1); MEAN CORPUSCULAR HEMOGLOBIN 30.9 pg (28-32); MEAN CORPUSCULAR HGB CONC 33.1 g/dL (31-35); MEAN CORPUSCULAR VOLUME 93.2 fL (81-99); MONOCYTES # (AUTO) 0.8 (0.2-0.8); NEUTROPHILS # (AUTO) 6.5 (2.1-6.9); NEUTROPHILS % 73.7 % (38.7-80.0); PLATELET COUNT 191 x10e3/uL (140-360); RED BLOOD COUNT 3.24 x10e6/uL (3.6-5.1); RED CELL DISTRIBUTION WIDTH 13.4 % (11.7-14.4); WHITE BLOOD COUNT 8.85 x10e3/uL (4.8-10.8)
[2023-01-10] MEDS ORDERED: IOPAMIDOL 370 MG/ML 100 ML INFUS..BTL INJ ONE (06:07)
[2023-01-10 06:11] LABS: ANION GAP 14.5 mmol/L (8-16); CALCIUM 9.2 mg/dL (8.4-10.2); CREATININE, SERUM 0.78 mg/dL (0.57-1.11); POTASSIUM 3.5 mmol/L (3.5-5.1)
[2023-01-10 06:48] VITALS: PULSE 72; RESP 16; O2SAT 98
[2023-01-10] MEDS: INSULIN REGULAR, HUMAN 100 UNIT/1 ML SQ SCH ×2 (07:30→11:56)
[2023-01-10 08:25] VITALS: BP_SYST 118; BP_SYST 96; BP_DIAS 52; BP_DIAS 79; PULSE 64; PULSE 98; RESP 16; RESP 19; TEMP 97.8; TEMP 97.9; O2SAT 95; O2SAT 98
[2023-01-10] MEDS: CEFTRIAXONE 2 GM in SODIUM CHLORIDE 0.9% 100 ML IV SCH (09:13)
[2023-01-10] MEDS: GLIMEPIRIDE 2 MG TAB PO SCH (09:13)
[2023-01-10] MEDS: TIMOLOL MALEATE 0.25% OPTHLAMIC DROPS 5 ML OP SCH (09:14)
[2023-01-10] MEDS ORDERED: CEPHALEXIN 500 MG CAP PO ONE (11:45)
[2023-01-10 12:00] VITALS: BP 152/71; PULSE 70; RESP 16; TEMP 97.7; O2SAT 100
[2023-01-10] MEDS ORDERED: CEPHALEXIN500 MG PO (12:09)
[2023-01-10] MEDS ORDERED: ONDANSETRON HCL 4 MG ORAL DISINTEGRATING TAB PO PRN (13:15)
== END 2023-01-10 13:42 | disposition home or self-care (01) | DRG 872 ==
LOC: ER 17:05 → ERHOLD 19:11 → MED/SURG3 21:55 → OBSVTOIN 01-09 08:37
PROVIDERS: ADMIT Internal Medicine; ATTEND Internal Medicine
DX: A41.50 Gram-negative sepsis, unspecified (principal); N12 Tubulo-interstitial nephritis, not specified as acute or chronic; N39.0 Urinary tract infection, site not specified; I10 Essential (primary) hypertension; E11.9 Type 2 diabetes mellitus without complications; Z16.11 Resistance to penicillins; Z16.39 Resistance to other specified antimicrobial drug; B96.20 Unspecified Escherichia coli [E. coli] as the cause of diseases classified elsewhere; H40.9 Unspecified glaucoma; M19.90 Unspecified osteoarthritis, unspecified site; E78.00 Pure hypercholesterolemia, unspecified; E78.5 Hyperlipidemia, unspecified; R00.0 Tachycardia, unspecified; R09.02 Hypoxemia; Z88.0 Allergy status to penicillin; Z79.4 Long term (current) use of insulin; Z11.52 Encounter for screening for COVID-19; Z79.84 Long term (current) use of oral hypoglycemic drugs
CPT/HCPCS: 36415; 70450; 71045; 74177; 80048; 80053; 81001; 82550; 82948; 83605; 83690; 83880; 84484; 85025; 87040; 87071; 87086; 87186; 87205; 93005; 94760; 94799; 99284; G0378; J0696; J1650; J7030; J7050; Q9967; U0002